=== PATIENT | female | born 1975 | race African-American/Black ===

== ENCOUNTER 2017-12-23 15:10 | Emergency (ER) | payer OTHER, SELFPAY ==
[2017-12-23 15:16] VITALS: BP 129/82; PULSE 92; RESP 16; TEMP 37; O2SAT 98; BMI 44.5
--- NOTE | 2017-12-23 16:17 | ED.EYEPROB ---
HPI - Eye Problem General Chief complaint: Eye Problems Stated complaint: LEFT EYE IRRITATION Time Seen by Provider: 12/23/17 16:16 Source: patient Mode of arrival: ambulatory Limitations: no limitations History of Present Illness HPI Narrative: 42-year-old female here for evaluation of blurry vision in her left eye. Patient states that on Friday which is 3 days ago patient woke up with blurry vision in her left eye. She does wear corrective glasses and has not had a recent change in these. She states that she also has a slight headache behind her right eye which she describes as from the pressure in that eye. She states the symptoms have not changed since the onset. No new symptoms have come about since then. She has no right eye symptoms. No fevers. No foreign body sensation. No trauma. Patient has never had PRK or Lasix in the past. She describes the blurry vision as just not being a sharp is normal. She also thinks that it is on the outside of the eye more than the inside. No changes in skin. Related Data Allergies Allergy/AdvReac Type Severity Reaction Status Date / Time No Known Drug Allergies Allergy Verified 12/23/17 18:23 Review of Systems Constitutional Denies chills, Denies fatigue, Denies fever(s), Denies headache(s), Denies lethargy and Denies malaise Eyes Reports blurry vision, Reports change in vision, Denies diplopia, Denies floaters, Denies irritation, Denies itchy eyes, Denies loss of peripheral vision, Denies loss of vision, Reports eye pain (Described as pressure), Denies seeing flashes, Denies photophobia, Denies spots in vision and Denies tunnel vision ENT Ears, Nose, Mouth, and Throat: Denies dental pain, Denies vertigo, Denies ear discharge, Denies otalgia, Denies headache(s), Denies neck mass, Denies tinnitus, Denies sinus pain, Denies sore throat, Denies throat swelling and Denies tongue swelling Cardiovascular Denies chest pain, Denies syncope and Denies dyspnea Respiratory Denies cough and Denies dyspnea Musculoskeletal Denies tingling Integumentary/Breasts Denies lesions, Denies rash and Denies wounds Neurologic Denies behavioral changes, Denies vertigo, Denies syncope, Denies headache(s), Denies loss of vision, Denies tingling and Denies tremor(s) Psychiatric Denies behavioral changes Endocrine Denies fatigue Hematologic/Lymphatic Denies easy bleeding and Denies easy bruising Allergic/Immunologic Denies itchy eyes, Denies throat swelling and Denies tongue swelling [facility] Social History Smoking Status: Never smoker Exam Initial Vital Signs Initial Vital Signs: Vital Signs Temperature 98.6 F 12/23/17 15:16 Pulse Rate 92 H 12/23/17 15:16 Respiratory Rate 16 12/23/17 15:16 Blood Pressure 129/82 H 12/23/17 15:16 Pulse Oximetry 98 12/23/17 15:16 Const General: cooperative, healthy appearing, comfortable, well developed, well groomed and No acute distress Orientation: alert, awake and oriented x3 HENMT Head: normal to inspection, normocephalic and atraumatic Ears: hearing grossly normal bilaterally Nose: external nose normal and nares normal Face and sinus: normal facial exam, sinuses nontender and face symmetric Mouth: oral mucosae normal Teeth and gingiva: dentition normal Eyes General: appearance normal, both eyes and all related structures Visual Dyer: normal visual dyer by confrontation Alignment and Position: alignment normal Periorbital: periorbital findings normal Eyelids: eyelids normal Conjunctivae: conjunctivae normal Sclera: sclerae normal Cornea: corneas normal and fluorescein used Pupils: PERRL, accommodation normal, not dilated, not fixed, regular and pupil size bilaterally (Equal) 4 EOM: EOM intact bilaterally Direct ophthalmoscopy: photophobia not present Other: The interocular pressure right eye 18 Interocular pressure left eye 24 Neck Neck: normal visual inspection Resp Effort & Inspection: normal respiratory effort Skin General: no rashes or lesions noted Lesions: no lesions Rashes: no rashes Neuro General: alert, awake and oriented x3 Cranial Nerves: CN's II-XI intact bilaterally and PERRL Course Orders Ordered: Discontinued Medications Diphenhydramine HCl (Benadryl) 25 mg IV NOW ONE Stop: 12/23/17 18:05 Last Admin: 12/23/17 18:33 Dose: 25 mg Sodium Chloride (Normal Saline 0.9%) 1,000 mls @ 1,000 mls/hr IV BOLUS ONE Stop: 12/23/17 19:03 Last Admin: 12/23/17 18:32 Dose: 1,000 mls/hr Ketorolac Tromethamine (Toradol) 30 mg IV NOW ONE Stop: 12/23/17 18:05 Last Admin: 12/23/17 18:33 Dose: 30 mg Metoclopramide HCl (Reglan) 10 mg IV NOW ONE Stop: 12/23/17 18:05 Last Admin: 12/23/17 18:33 Dose: 10 mg Vital Signs - 8 hr 12/23/17 15:16 12/23/17 16:52 12/23/17 18:12 Temperature 98.6 F 97.9 F 97.9 F Pulse Rate 92 H 82 84 Respiratory Rate 16 16 16 Blood Pressure 129/82 H Blood Pressure [Left Arm] 131/71 H 119/82 H Pulse Oximetry 98 99 97 MDM - Eye Problem MDM Narrative Medical decision making narrative: Patient states that the most of her symptoms are on the temporal aspect of the left eye but also was having nasal aspect symptoms of the left eye as well. No right eye symptoms. Physical exam is not consistent with glaucoma. No uptake with for seen staining. Patient did state that she had a history of migraines but has not had 1 in several years and has never had an ocular migraine. She was given migraine medicine here in the emergency department which she states did improve the discomfort somewhat in the eye but it is still blurry. We did not have ophthalmology coverage this evening however was able to talk with Dr. Diehl who was on-call with Ophthalmology down at [place] who stated that with the history and physical exam that I provided that it did not seem that the patient needed emergent evaluation by Ophthalmology. Patient was instructed that she did need a dilated eye exam. She was given the phone number for the local ophthalmology group to call them tomorrow. She does have an bolt man that she sees that she will try to get in to see as well. She was given return precautions. She expressed understanding and agreement with plan. Discharge Plan Departure Patient Disposition: Home, Self-Care Clinical Impression: Blurred vision, left eye Instructions: DI for Visual Field Disturbances Activity Restrictions/Additional Instructions: You do need a dilated eye exam performed by an instructional services specialist. You can call the ophthalmology group here him and deon Cerda at [phone] tomorrow for follow-up. You can also call you're bolt man in [place]. ED need to have this exam done within the next 24-48 hours. You can return to the emergency department at any time for new or worsening symptoms.
[2017-12-23 16:52] VITALS: BP 131/71; PULSE 82; RESP 16; TEMP 36.6; O2SAT 99
[2017-12-23 18:12] VITALS: BP 119/82; PULSE 84; RESP 16; TEMP 36.6; O2SAT 97
[2017-12-23] MEDS: SODIUM CHLORIDE 0.9% 1,000 ML 1000 ML IV (18:32)
[2017-12-23] MEDS: METOCLOPRAMIDE 10 MG/2 ML INJ IV (18:33)
[2017-12-23] MEDS: KETOROLAC 60 MG/2 ML VIAL 30 MG IV (18:33)
[2017-12-23] MEDS: diphenhydrAMINE 50 MG/ML VIAL 25 MG IV (18:33)
== END 2017-12-23 19:51 | disposition home or self-care (01) ==
PROVIDERS: Emergency Provider Emergency Medicine; PCP Physician Assistant Medical
DX: H53.8 Other visual disturbances (principal)
CPT/HCPCS: 96374; 96375; 99283; 99284; J1200; J1885; J2765

== ENCOUNTER 2022-03-05 17:18 | Emergency (ER) | payer OTHER, SELFPAY ==
[2022-03-05 17:27] VITALS: BP 180/100; PULSE 95; RESP 16; TEMP 36.1; O2SAT 97; BMI 44.1
[2022-03-05 18:30] VITALS: BP 167/89; PULSE 83; RESP 18; O2SAT 100
--- NOTE | 2022-03-05 19:12 | ED_ITS ---
HPI - General Adult General Chief complaint: Abdominal Pain Stated complaint: Stomach and back pains Time Seen by Provider: 03/05/22 19:12 History of Present Illness HPI narrative: 46-year-old woman with history of MS, fatty liver known gallstones that have never been a problem, ADD and migraines presents with 72 hours of left upper abdominal pain that she describes as burning and radiating through to her back. She has issues with chronic constipation which she assumed was the initial problem. She ended up taking some Dulcolax and has had a large bowel movement that has not influence her pain. She states that this morning the pain in the left upper quadrant it is worsened continues to be consistent in describing it as a burning pain. She has taken Pepcid and found that it relieves symptoms but only for a brief period of time. She has not tried any additional pain medicat ions. She denies any fevers, cough, chills. She did have an episode of vomiting this morning. After the Mar black she had a bit of mucousy diarrhea following the initial output. She is not describing lower extremity edema or headaches. Related Data Previous Rx's Medication Instructions Recorded omeprazole 40 mg capsule,delayed 40 mg PO DAILY #60 caps 03/05/22 release Allergies Allergy/AdvReac Type Severity Reaction Status Date / Time No Known Drug Allergies Allergy Verified 12/23/17 18:23 Review of Systems Review of Systems Narrative: Remainder of complete review of systems is otherwise unremarkable except for that included in the HPI. Patient History Medical History ADD (attention deficit disorder) Gallstone Migraine Multiple sclerosis Social History Smoking Status: Never smoker Smoking Status: Never smoker alcohol intake frequency: other Substance Use Type: does not use Exam Initial Vital Signs Initial Vital Signs: Vital Signs Temperature 97.0 F L 03/05/22 17:27 Pulse Rate 95 H 03/05/22 17:27 Respiratory Rate 16 03/05/22 17:27 Blood Pressure 180/100 H 03/05/22 17:27 Pulse Oximetry 97 03/05/22 17:27 Oxygen Delivery Method 03/05/22 17:27 General: Healthy appearing, in no acute distress. Able to give a complete and coherent history. Well-nourished well-developed HEENT: Moist mucous membranes, normal sclera with reactive pupils, Neck: No JVD, supple Respiratory: Lungs are clear to auscultation, no wheezing no rales no rhonchi. Full and symmetrical air movement Cardiac: Regular rate and rhythm no murmurs no bruits Abdomen: Soft, no tenderness reproducible in the epigastrium of the left upper quadrant, no rebound or guarding good bowel tones, no flank pain Skin: Warm and dry, no rashes Neurologic: Grossly neurologically intact with no obvious asymmetries or abnormalities Extremities: No trauma, well perfused Psych: Cooperative, appropriate insight and affect Course Orders Ordered: ED Orders 03/05/22 19:36 Complete Blood Count AUTO DIFF Stat Comprehensive Metabolic Panel Stat Lipase Stat Troponin I Stat Discontinued Medications Pantoprazole Sodium (Pantoprazole 40 Mg Vial) 80 mg IV NOW ONE Stop: 03/05/22 19:23 Last Admin: 03/05/22 19:39 Dose: 80 mg Documented By: LUIS MIGUEL Vital Signs Vital signs: Vital Signs - 8 hr 03/05/22 17:27 03/05/22 18:30 Temperature 97.0 F L Pulse Rate 95 H 83 Respiratory Rate 16 18 Blood Pressure 180/100 H 167/89 H Pulse Oximetry 97 100 Oxygen Delivery Method Room Air Room Air Medical Decision Making Lab Data Result diagrams: 03/05/22 19:36 03/05/22 19:36 Labs: Lab Results 03/05/22 03/05/22 03/05/22 Range/Units 19:36 19:36 19:36 WBC 5.9 (4.5-11.0) X10^3/uL RBC 4.49 (4.0-5.2) X10^6/uL Hgb 13.6 (12.0-16.0) g/dL Hct 39.8 (36-46) % MCV 88.6 (80-100) fL MCH 30.3 (26-34) PG MCHC 34.2 (30-36) % RDW 14.2 (11.6-14.8) % Plt Count 282 (150-400) X10^3/uL Neut % (Auto) 54.7 (50-75) % Lymph % (Auto) 35.5 (25-40) % [place] % (Auto) 5.8 (3-14) % Eos % (Auto) 3.1 (2-4) % Baso % (Auto) 0.9 (0-2) % Neut # (Auto) 3200 (8626-0341) /uL Lymph # (Auto) 2100 (9689-3453) /uL [place] # (Auto) 300 (0-900) /uL Eos # (Auto) 200 (0-450) /uL Baso # (Auto) 100 (0-100) /uL Sodium 140 (137-145) mmol/L Potassium 4.2 (3.4-5.1) mmol/L Chloride 107 (98-107) mmol/L Carbon Dioxide 28 (22-32) mmol/L BUN 14 (7-17) mg/dL Creatinine 0.80 (0.52-1.04) mg/dL Estimated GFR > 60 (>60) mL/min BUN/Creatinine Ratio 17.5 (6-22) Glucose 103 H (70-100) mg/dL Calcium 8.9 (8.4-10.2) mg/dL Total Bilirubin 0.5 (0.2-1.3) mg/dL AST 30 (14-36) IU/L ALT 31 (<35) IU/L Alkaline Phosphatase 90 (38-126) U/L Troponin I < 0.012 (0.01-0.034) ng/mL Total Protein 8.6 H (6.3-8.2) g/dL Albumin 4.4 (3.5-5.0) g/dL Globulin 4.2 H (1.7-4.1) g/dL Albumin/Globulin Ratio 1.0 (1.0-2.8) Lipase 70 (23-300) U/L [facility] Narrative Medical decision making narrative: 46-year-old woman with severe epigastric burning pain. There is no evidence of cardiac involvement, pancreatitis, acute bacterial infection acute anemia or blood loss. She did feel significantly better after at a dose of pantoprazole. At this point the most likely explanation is gastritis with possibility of a developing ulcer. Possibility of H pylori needs to be explored on an outpatient basis. Will ask her to complete 6 weeks of omeprazole and follow-up with her primary care physician within the next couple of weeks. On re-evaluation she is nontoxic, pain is almost entirely resolved and she is safe for discharge Discharge Plan Departure Patient Disposition: Home Clinical Impression: Gastritis Qualifiers: Gastritis type: unspecified gastritis Chronicity: acute Gastritis bleeding: without bleeding Qualified Code(s): K29.00 - Acute gastritis without bleeding Instructions: DI for Gastric Ulcer Activity Restrictions/Additional Instructions: Thank you for coming in today Your workup was very reassuring. There is no evidence of heart attack, bleeding, liver or pancreatitis problems. With your history, exam and significant improvement with the acid blocking medicine I suspect that this pain is from your stomach. You may be developing some gastritis which is just irritation of the lining or it may be worsening to the point of an ulcer. The treatment at this point is the same for both. I am going to suggest that you complete 6 weeks of omeprazole, a stomach acid delphine. You do need to follow-up with her primary care physician within the next 1-2 weeks. I want to make sure that you are improving and you can talk to your primary care doctor about outpatient Helicobacter pylori testing. This is a bacteria that can cause stomach ulcers and is treatable. If you find that you are getting worse or develop any new symptoms, please feel free to return to the emergency department for further evaluation. Prescriptions: New omeprazole 40 mg capsule,delayed release(DR/EC) 40 mg PO DAILY Qty: 60 0RF Referrals: Mireya Joyner PA-C [Primary Care Provider] -
[2022-03-05] MEDS: PANTOPRAZOLE 40 MG VIAL 80 MG IV (19:39)
[2022-03-05 19:54] LABS: Add Manual Diff / Slide Review NO; Basophils Absolute Auto 100 /uL (0-100); Basophils Percent Auto 0.9 % (0-2); Eosinophils Absolute Auto 200 /uL (0-450); Eosinophils Percent Auto 3.1 % (2-4); Hematocrit 39.8 % (36-46); Hemoglobin 13.6 g/dL (12.0-16.0); Lymphocytes Absolute Auto 2100 /uL (1100-4500); Lymphocytes Percent Auto 35.5 % (25-40); Mean Corpuscular HGB Conc 34.2 % (30-36); Mean Corpuscular Hemoglobin 30.3 PG (26-34); Mean Corpuscular Volume 88.6 fL (80-100); Monocytes Absolute Auto 300 /uL (0-900); Monocytes Percent Auto 5.8 % (3-14); Neutrophils Absolute Auto 3200 /uL (1500-7000); Neutrophils Percent Auto 54.7 % (50-75); Platelet Count 282 X10^3/uL (150-400); Red Blood Cell Count 4.49 X10^6/uL (4.0-5.2); Red Cell Distribution Width 14.2 % (11.6-14.8); White Blood Cell Count 5.9 X10^3/uL (4.5-11.0)
[2022-03-05 20:22] LABS: Alanine Aminotransferase 31 IU/L (<35); Albumin 4.4 g/dL (3.5-5.0); Alkaline Phosphatase 90 U/L (38-126); Aspartate Aminotransferase 30 IU/L (14-36); BUN Creatinine Ratio 17.5 (6-22); Bilirubin Total 0.5 mg/dL (0.2-1.3); Blood Urea Nitrogen 14 mg/dL (7-17); Calcium 8.9 mg/dL (8.4-10.2); Carbon Dioxide 28 mmol/L (22-32); Chloride 107 mmol/L (98-107); Estimated Glomerular Filt Rate > 60 mL/min (>60); Globulin 4.2 g/dL (1.7-4.1); Glucose 103 mg/dL (70-100); HEMOLYSIS < 15 (0-50); Lipase 70 U/L (23-300); Potassium 4.2 mmol/L (3.4-5.1); Sodium 140 mmol/L (137-145); Total Protein 8.6 g/dL (6.3-8.2)
[2022-03-05 20:34] LABS: Troponin I < 0.012 ng/mL (0.01-0.034)
== END 2022-03-05 21:55 | disposition home or self-care (01) ==
PROVIDERS: Emergency Provider Emergency Medicine; PCP Physician Assistant Medical
DX: K29.00 Acute gastritis without bleeding (principal)
CPT/HCPCS: 36415; 80053; 83690; 84484; 85025; 96374; 99284; C9113

== ENCOUNTER 2022-10-13 13:49 | Emergency (ER) | payer OTHER, SELFPAY ==
[2022-10-13 14:12] VITALS: BP 135/81; PULSE 88; RESP 16; TEMP 36.1; O2SAT 100; BMI 41.0
--- NOTE | 2022-10-13 17:02 | PC.NURSE ---
Pt appears to have a soft lipoma-like growth on her left thigh. States she has an appt on the with her PCP to discuss. VSS. In no apparent distress.
--- NOTE | 2022-10-13 17:06 | ED.EXTPRO ---
HPI - Extremity Problem <CELINE Li - Last Filed: 10/13/22 19:12> General Chief complaint: Extremity Problem,Nontraumatic Stated complaint: knot popped up on lt thigh, about size of lemon Time Seen by Provider: 10/13/22 15:31 History of Present Illness HPI Narrative: This is a 47-year-old female presents to the emergency department with a swollen mass on the left lateral aspect of upper leg over the last 6 months. She states that it feels like it is fluid filled, has been getting bigger, she has bumped it a few times and that has been painful. She denies any surrounding redness, denies any wound or discharge. Denies history of MRSA or other skin condition. States that she has follow-up scheduled for 10/25/2022 with dermatology.. She denies any traumatic injury that she knows is to this area, denies any increased tenderness, change to the skin color or swelling around this area. She just states the lump has gotten bigger over proximally 6 months without any skin changes. She denies fever chills, denies any muscular deficit or sensation changes in her leg. She does not have diabetes. Related Data Previous Rx's Medication Instructions Recorded omeprazole 40 mg capsule,delayed 40 mg PO DAILY #60 caps 03/05/22 release Allergies Allergy/AdvReac Type Severity Reaction Status Date / Time No Known Drug Allergies Allergy Verified 10/13/22 14:15 Review of Systems <CELINE Li - Last Filed: 10/13/22 19:12> Review of Systems ROS Unobtainable: All systems reviewed & are unremarkable except as noted in HPI and below Patient History <CELINE Li - Last Filed: 10/13/22 19:12> Medical History ADD (attention deficit disorder) Gallstone Migraine Multiple sclerosis Social History Smoking Status: Never smoker Smoking Status: Never smoker alcohol intake frequency: other Substance Use Type: does not use Exam <CELINE Li - Last Filed: 10/13/22 19:12> Narrative Exam Narrative: Reviewed vitals signs and nursing notes. General: Pleasant, sitting upright, in no acute distress, well groomed, afebrile MSK: moves all extremities, no weakness, normal tone, ambulatory without deficit Skin: brisk capillary refill, without rash or wound, left lateral thigh with fluctuant lipoma versus cyst to the lateral aspect with no surrounding erythema, skin changes, it is soft to palpation and consistent with surrounding tissue. Needle aspiration was attempted x4 with 22 and 18 gauge needles, no fluid was aspirated from different sites. This is most likely a lipoma and patient tolerated this well with local anesthetic and did not have any pain or complication Neuro: clear speech and normal cognition, A&O x3, GCS 15, no focal motor or sensation deficits Initial Vital Signs Initial Vital Signs: Vital Signs Temperature 97 F L 10/13/22 14:12 Pulse Rate 88 10/13/22 14:12 Respiratory Rate 16 10/13/22 14:12 Blood Pressure 135/81 10/13/22 14:12 Pulse Oximetry 100 10/13/22 14:12 Oxygen Delivery Method Room Air 10/13/22 14:12 <Edwin Lopez DO - Last Filed: 10/13/22 17:28> Initial Vital Signs Initial Vital Signs: Vital Signs Temperature 97 F L 10/13/22 14:12 Pulse Rate 88 10/13/22 14:12 Respiratory Rate 16 10/13/22 14:12 Blood Pressure 135/81 10/13/22 14:12 Pulse Oximetry 100 10/13/22 14:12 Oxygen Delivery Method Room Air 10/13/22 14:12 Course <Sydni Amato [facility] - Last Filed: 10/13/22 19:12> Vital Signs Vital signs: Vital Signs - 8 hr 10/13/22 14:12 10/13/22 17:28 Temperature 97 F L Pulse Rate 88 92 H Respiratory Rate 16 18 Blood Pressure 135/81 Pulse Oximetry 100 96 Oxygen Delivery Method Room Air <Edwin Lopez DO - Last Filed: 10/13/22 17:28> Vital Signs Vital signs: Vital Signs - 8 hr 10/13/22 14:12 10/13/22 17:28 Temperature 97 F L Pulse Rate 88 92 H Respiratory Rate 16 18 Blood Pressure 135/81 Pulse Oximetry 100 96 Oxygen Delivery Method Room Air MDM - Extremity (Nontraumatic) <Sydni Amato, [facility] - Last Filed: 10/13/22 19:12> [facility] Narrative Medical decision making narrative: Chief Complaint: Mass on left leg Multiple etiologies for patient's symptoms considered including, but not limited to: Lipoma, epidermoid cyst, malignancy, other benign soft tissue tumor I have independently reviewed the patient's vital signs and nursing notes as well as prior records if available. Pertinent records include: Course of care: Ruled out imaging as there is no erythema, attempted incision and drainage was negative for any fluid removal. Soft-tissue is soft, fluctuant this is most likely lipoma. Encouraged her to follow-up with her PCP if she has any changes for outpatient imaging as needed. Told her to return to the emergency department if she develops infectious symptoms like erythema, swelling and edema, or streaking up her leg. She does not have risk factors for abscess. Does not have current or prior substance abuse is up-to-date on vaccinations. Denies any for pain medication Social considerations that may affect disposition: none Questions are addressed and there is agreement with the plan and for follow-up. Patient is appropriate for outpatient management. Discharge Plan Departure Patient Disposition: Home Clinical Impression: Lipoma of left thigh Instructions: [place] DI for Lipoma Removal Activity Restrictions/Additional Instructions: *You have been diagnosed with what is most likely a lipoma of your left upper thigh. Since this is superficial to the muscle, not exquisitely tender or showing signs of infection, this is not likely to be a tumor or an epidermoid cyst however it is possible that it could be either 1 of those. If you develop a fever, chills, or rash, worsening pain or increasing size of lump rapidly, please come back in for further imaging. Unfortunately ultrasound has gone home today but I do not think it will change your disposition. Lipomas within the adipose tissue and since there was nice fluid that came out of this on multiple attempts at stabbing, this is likely lipoma. I did not notice any abnormal tissue or discharge. This should not cause any infection, okay to put a little topical antibiotic ointment over this. Please have your PCP put in an order for an outpatient ultrasound to complete prior to your follow-up appointment. I wish you the best, it was nice to meet you, please return for any worsening condition. *What to do: *Please continue to take your regular medications as directed. [ ] New medication prescriptions sent to your pharmacy: [ ] [ ] New medication written as a paper prescription [x ] No new medications given *Please call and schedule follow up with your primary care provider in 2-3 days, at least for an update. Let them know you were seen in the Emergency Department for the above problem. We will electronically transmit a record of today's note if your PCP or specialist is in our system. *If you do not have a primary care provider please contact [phone] to establish care with one of the [facility] primary care providers. *Return to the Emergency Department for worsening symptoms, inability to keep liquids down, fever greater than 101F, chills, or other concerning symptom. Prescriptions: No Action omeprazole 40 mg capsule,delayed release(DR/EC) 40 mg PO DAILY Qty: 60 0RF Referrals: Teena Browne ARNP [Primary Care Provider] - Stand Alone Forms: Patient Portal/API <Edwin Lopez, DO - Last Filed: 10/13/22 17:28> Cosign ED Attending Cosignature Attestation: Dr Lopez Co-Sign Statement: I was available for consultation during this patient's emergency department visit. This chart is signed by myself for administrative purposes only. I did not have direct contact with this patient during this visit. They were seen independently by the APC.
[2022-10-13 17:28] VITALS: PULSE 92; RESP 18; O2SAT 96
== END 2022-10-13 17:31 | disposition home or self-care (01) ==
PROVIDERS: Emergency Provider Nurse Practitioner Critical Care Medicine; PCP Nurse Practitioner Family
DX: D17.24 Benign lipomatous neoplasm of skin and subcutaneous tissue of left leg (principal)
CPT/HCPCS: 99281